=== PATIENT | male | born 1945 ===

== ENCOUNTER 2022-01-22 14:48 | Outpatient (CLI) | payer OTHER | END 2022-01-23 15:06 | disposition home or self-care (01) | LOC: RAD 14:48 | PROVIDERS: ATTEND Orthopaedic Surgery | DX: M25.562 Pain in left knee (principal) ==

== ENCOUNTER 2022-03-16 09:32 | Outpatient (CLI) | payer OTHER | END 2022-03-16 09:51 | disposition home or self-care (01) | LOC: LAB 09:32 | PROVIDERS: ATTEND Orthopaedic Surgery | DX: D64.9 Anemia, unspecified (principal); D68.8 Other specified coagulation defects; N39.0 Urinary tract infection, site not specified; E11.9 Type 2 diabetes mellitus without complications; A49.02 Methicillin resistant Staphylococcus aureus infection, unspecified site; I10 Essential (primary) hypertension ==

== ENCOUNTER 2022-03-25 11:30 | Inpatient (IN) | payer OTHER ==
[~2022-03-25] VITALS: Ht 170.2 cm; Wt 109.8 kg
[2022-03-26] MEDS ORDERED: TRICOR145 MG PO (09:12)
[2022-03-26] MEDS ORDERED: VASOTEC20 MG PO (09:12)
[2022-03-26] MEDS ORDERED: HYDROCHLOROTH12.5 MG PO (09:13)
[2022-03-26] MEDS ORDERED: LIPITOR20 MG PO (09:13)
[2022-03-26] MEDS ORDERED: BETIMOL5 M1 OTIC (09:13)
[2022-03-31] MEDS ORDERED: XARELTO10 M1 (08:07)
[2022-03-31] MEDS ORDERED: TIMOLOL MALEATE5 M4 (08:08)
[2022-03-31] MEDS ORDERED: GABAPENTIN100 M2 (08:08)
[2022-03-31] MEDS ORDERED: ATORVASTATIN CA10 MG (08:08)
== END 2022-04-03 00:08 | disposition home or self-care (01) | DRG 470 ==
LOC: SURH 03-30 09:00 → O/R 03-30 18:19 → SURG 03-30 18:19
PROVIDERS: ADMIT Orthopaedic Surgery; ATTEND Orthopaedic Surgery
PROC: 0SRD0J9 Replacement of Left Knee Joint with Synthetic Substitute, Cemented, Open Approach (ICD-10-PCS; principal; 2022-03-30 09:00)
DX: M17.12 Unilateral primary osteoarthritis, left knee (principal); Z20.822 Contact with and (suspected) exposure to COVID-19; I10 Essential (primary) hypertension

== ENCOUNTER 2022-08-13 14:32 | Outpatient (CLI) | payer OTHER ==
[~2022-08-13 14:32] MED LIST: ATORVASTATIN CA10 MG; BETIMOL5 M1 OTIC; GABAPENTIN100 M2; HYDROCHLOROTH12.5 MG PO; LIPITOR20 MG PO; TIMOLOL MALEATE5 M4; TRICOR145 MG PO; VASOTEC20 MG PO; XARELTO10 M1
== END 2022-08-13 14:42 | disposition home or self-care (01) ==
LOC: RAD 14:32
PROVIDERS: ATTEND Orthopaedic Surgery
DX: M25.512 Pain in left shoulder (principal)

== ENCOUNTER 2022-10-28 15:07 | Outpatient (CLI) | payer OTHER | END 2022-10-28 15:14 | disposition home or self-care (01) | LOC: RAD 15:07 | PROVIDERS: ATTEND Orthopaedic Surgery | DX: M75.112 Incomplete rotator cuff tear or rupture of left shoulder, not specified as traumatic (principal); M19.012 Primary osteoarthritis, left shoulder ==

== ENCOUNTER 2022-12-01 08:32 | Outpatient (CLI) | payer OTHER | END 2022-12-02 13:59 | disposition home or self-care (01) | LOC: LAB 08:32 | PROVIDERS: ATTEND Orthopaedic Surgery | DX: D64.9 Anemia, unspecified (principal); E88.9 Metabolic disorder, unspecified; D68.8 Other specified coagulation defects; N39.0 Urinary tract infection, site not specified; Z76.89 Persons encountering health services in other specified circumstances; M25.511 Pain in right shoulder; M25.112 Fistula, left shoulder; I10 Essential (primary) hypertension ==